=== PATIENT | female | born 1975 | race Caucasian/White ===

== ENCOUNTER 2024-11-15 22:18 | Emergency (ER) | payer SELFPAY ==
[2024-11-15 22:20] VITALS: BMI 47.0
[2024-11-15 23:06] VITALS: BP 163/97; PULSE 100; RESP 18; TEMP 36.7; O2SAT 97
--- NOTE | 2024-11-15 23:42 | PD.EDRECHK ---
ED Recheck Abnl Lab Rx-RME/HPI General Chief Complaint: General Adult/Misc Complain Stated Complaint: HIGH BS RAN OUT OF MEDS Time Seen by Provider: 11/15/24 23:19 Arrival date/time: 11/15/24 22:18 RME / HPI RME / HPI narrative: See [facility] for Dr. Bryan's HPI Documentation. Related Data Home Medications ?Medication ?Instructions ?Recorded ?Confirmed amlodipine 10 mg tablet 10 mg PO QDAY 07/26/18 10/31/20 furosemide 20 mg tablet 20 mg PO QDAY 07/26/18 10/31/20 lisinopril 10 mg tablet 10 mg PO DAILY 07/18/20 10/31/20 metformin 500 mg tablet 500 mg PO BID 07/18/20 10/31/20 ergocalciferol (vitamin D2) 1,250 1 mcg PO QWEEK 10/31/20 10/31/20 mcg (50,000 unit) capsule (Vitamin D2) Previous Rx's ?Medication ?Instructions ?Recorded metoprolol tartrate 50 mg tablet 50 mg PO BID #60 tabs 07/07/15 ibuprofen 600 mg tablet 600 mg PO Q8H PRN fever or pain 07/18/20 #30 tabs furosemide 40 mg tablet (Lasix) 40 mg PO BID #60 tabs 11/16/24 insulin glargine 100 unit/mL (3 30 unit (0.3 mL) subcut QPM #30 mL 11/16/24 mL) subcutaneous pen lisinopril 5 mg tablet 5 mg PO QDAY #30 tabs 11/16/24 metformin 1,000 mg tablet 1,000 mg PO BID #60 tabs 11/16/24 Allergies Allergy/AdvReac Type Severity Reaction Status Date / Time No Known Allergies Allergy Verified 11/16/24 00:30 Review of Systems Review of Systems Systems Reviewed: All systems reviewed, normal except as documented Past Medical History Past Medical History CARDIAC: Positive Cardiac Disorders and Hypertension ENDOCRINE: Positive Diabetes Mellitus Type 2 Surgical History SURGICAL: Positive Cardiac Surgery and Tonsillectomy ED Exam Narrative Physical exam: See [facility] for Dr. Bryan's Physical Exam Documentation. Course Quality Measures none Orders Category Date Time Status Glucose [Bedside Blood Glucose] NOW Care 11/16/24 01:56 Completed Glucose [Bedside Blood Glucose] NOW Care 11/16/24 04:07 Completed Saline [Insert IV] NOW Care 11/16/24 02:32 Completed ABG [Arterial Blood Gas] Stat Lab 11/15/24 23:55 Completed Beta Hydroxybutyrate Stat Lab 11/15/24 23:43 Completed Bilirubin,Direct Stat Lab 11/15/24 23:43 Completed CBC Stat Lab 11/15/24 23:43 Completed CMP [Comprehensive Metabolic Panel] Stat Lab 11/15/24 23:43 Completed CRP [C-Reactive Protein] Stat Lab 11/15/24 23:43 Completed ESR [Sed Rate (ESR)] Stat Lab 11/15/24 23:43 Completed Hemoglobin A1C [Glycohemoglobin w (eAG)] Stat Lab 11/15/24 23:43 Completed Lactate (Lactic Acid) Stat Lab 11/15/24 23:43 Completed Lactic Acid, 3 HR Stat Lab 11/16/24 03:25 Completed Magnesium Stat Lab 11/15/24 23:43 Completed Procalcitonin Stat Lab 11/15/24 23:43 Completed UA, C/S IF [Urinalysis, C/S if Indicated] Stat Lab 11/15/24 00:12 Completed Insulin Regular Med 11/16/24 02:31 Discontinued 10 unit IV X1 ONE Insulin Regular Med 11/15/24 23:22 Discontinued 10 unit SC X1 ONE Insulin Regular Med 11/16/24 03:13 Discontinued 5 unit IV X1 ONE Insulin Regular Med 11/16/24 04:15 Discontinued 5 unit IV X1 ONE KCL 10% Liq UDC 15 ML Med 11/16/24 00:50 Discontinued 40 meq PO X1 ONE Ondansetron Inj [Zofran Inj] Med 11/16/24 02:31 Discontinued 4 mg IVP X1 ONE Ringers Lactated 1000 ml [Lactated Ringers] 1,000 ml Med 11/16/24 02:32 Discontinued IV 1,000 mls/hr Vital Signs Vital signs: Vital Signs Temperature 98.1 F 11/15/24 23:06 Pulse Rate 100 11/15/24 23:06 Respiratory Rate 18 11/15/24 23:06 Blood Pressure 163/97 H 11/15/24 23:06 Pulse Oximetry (%) 97 11/15/24 23:06 Oxygen Delivery Method Room Air 11/15/24 23:06 Recheck / Abnormal Lab / Rx MDM Narrative MDM Narrative:: This section includes all my notes and documentations, including HPI, PE, and ED course. Sukhjinder Bryan MD HPI: 49 y/o female with Hx of Type II DM presents with elevated blood sugar s/p running out of insulin several days ago. No other complaints. ROS: All negative except as documented in HPI. Physical Exam: General: Alert and oriented. No acute distress when remaining still. Eyes: Conjunctivae and lids clear. ENT: No nasal congestion. Neck: Supple. Heart: RRR. Lungs: No respiratory distress. Good air movement. No rhonchi, wheezing, rales. Abdomen: Soft and nontender. Normal bowel sounds. No distension. No rebound or guarding. Back: No CVA tenderness. Skin: Warm and dry. Neuro: Alert and oriented X 3. I reviewed all diagnostic test results: Blood tests and urine tests remarkable for K 3.3 and glucose 480. At this point, diagnoses include: Hyperglycemia due due to running out of insulin for several days Treatment here included: Insulin 10 units SC Oral KCl 40 meq Zofran 4 mg Insulin 5 units IV X 2 IVF Significant improvement noted. Recommended outpatient care. Based on my best medical judgment, made decision no further evaluation or treatment indicated at this time. Patient understands and agrees to the discharge instructions customized and printed, see below. Discharge Instructions from Dr. Bryan printed for you: 1. You were treated for very high sugar levels from not taking insulin for several days. 2. Your insulin and other medications were prescribed. 3. When you take Lasix, eat a banana. Because Lasix can lower potassium to dangerous levels. 4. See a private doctor on 12/09 for recheck and further care. Ask to review all test results and official radiology reports, to make sure you receive all necessary follow-ups and monitoring. 5. Seek immediate medical care with worsening or with any concerns. Sukhjinder Bryan MD Patient data External records reviewed:: [facility] previous records (Reviewed prior ED records from 01/19/22. Patient was seen for Dog bite.) Clinical information provided by:: patient Social determinants that could affect healthcare access:: none Patient has the following chronic illnesses:: HTN, Type II DM How is presenting disease/condition affected by chronic disease/condition?: exacerbated by Evaluation data The following diagnostics were reviewed and interpreted by me:: lab results Lab and/or radiology exams considered but not ordered:: None Interpretation Summary: I reviewed all diagnostic test results: Blood tests and urine tests remarkable for K 3.3 and glucose 480. Medications / Prescriptions Medications or Prescriptions considered but not ordered:: None Medication administrations:: Medication Administration History Discontinued Medications Lactated Ringer's (Lactated Ringers) 1,000 mls @ 1,000 mls/hr IV .Q1H ONE Stop: 11/16/24 03:31 Last Infusion: 11/16/24 04:25 Dose: Infused Documented By: Admin: 11/16/24 03:25 Dose: 1,000 mls/hr Documented By: RIN Insulin Human Regular (Insulin Hum Regular 1 Unit/0.01 Ml (Per Unit)) 10 unit SC X1 ONE Stop: 11/15/24 23:23 Last Admin: 11/16/24 01:09 Dose: 10 unit Documented By: HERNESTO Co-signed By: RIN Insulin Human Regular (Insulin Hum Regular 1 Unit/0.01 Ml (Per Unit)) 10 unit IV X1 ONE Stop: 11/16/24 02:32 Last Admin: 11/16/24 03:16 Dose: Not Given Documented By: RIN Non-Admin Reason: Discontinued Insulin Human Regular (Insulin Hum Regular 1 Unit/0.01 Ml (Per Unit)) 5 unit IV X1 ONE Stop: 11/16/24 03:14 Last Admin: 11/16/24 03:22 Dose: 5 unit Documented By: RIN Co-signed By: CLAUDIA Insulin Human Regular (Insulin Hum Regular 1 Unit/0.01 Ml (Per Unit)) 5 unit IV X1 ONE Stop: 11/16/24 04:16 Last Admin: 11/16/24 04:47 Dose: 5 unit Documented By: RAMANDEEP Co-signed By: CLAUDIA Ondansetron HCl (Ondansetron Inj 2 Mg/Ml Inj 2 Ml) 4 mg IVP X1 ONE; Protocol Stop: 11/16/24 02:32 Last Admin: 11/16/24 03:40 Dose: Not Given Documented By: RAMANDEEP Non-Admin Reason: Patient Refused Potassium Chloride (Potassium Chloride 10% 20 Meq/15 Ml Udc) 40 meq PO X1 ONE Stop: 11/16/24 00:51 Last Admin: 11/16/24 01:12 Dose: 40 meq Documented By: HERNESTO Treatment here included: Insulin 10 units SC Oral KCl 40 meq Zofran 4 mg Insulin 5 units IV X 2 IVF Consultations Consultation(s) initiated? (list below): No Diagnosis Recheck Differential Diagnosis: encounter for medication refill and other (Hyperglycemia v Insufficient Diabetes Management) Most likely diagnosis given after review of the tests above:: Hyperglycemia due to running out of insulin for several days Admission Indicated Admission indicated?: not indicated Explain why admission is indicated or not indicated:: With significant improvement and no condition needing emergent intervention, there was no indication for admission. Admission Request Was there a request for admission?: No Disposition Plan Disposition Plan: Discharge Discharge Attestation Discharge Attestation: The patient and all family members were given an opportunity to ask questions and understood the discharge instructions. Discharge instructions specifically effects, indications for sooner follow up or return to the emergency department, and the expected course of current diagnosis. Patient condition: Stable Discharge Plan Plan Patient Disposition: HOME (Self Care) Prescriptions/Referrals Prescriptions/Med Rec: New lisinopril 5 mg tablet 5 mg PO QDAY Qty: 30 2RF furosemide [Lasix] 40 mg tablet 40 mg PO BID Qty: 60 2RF metformin 1,000 mg tablet 1,000 mg PO BID Qty: 60 2RF insulin glargine 100 unit/mL (3 mL) insulin pen 30 unit subcut QPM Qty: 30 2RF No Action metoprolol tartrate 50 MG tablet 50 mg PO BID Qty: 60 0RF amlodipine 10 mg Tablet 10 mg PO QDAY furosemide 20 mg Tablet 20 mg PO QDAY ergocalciferol (vitamin D2) [Vitamin D2] 1,250 mcg (50,000 unit) capsule 1 mcg PO QWEEK Patient Comments: take 1 capsule by mouth every week metformin 500 mg Tablet 500 mg PO BID lisinopril 10 mg tablet 10 mg PO DAILY ibuprofen 600 mg tablet 600 mg PO Q8H PRN (Reason: fever or pain) Qty: 30 0RF Referrals: No Primary/Family,Physician [Primary Care Provider] - In 1 week Problem List Clinical Impression: Hyperglycemia due to diabetes mellitus Patient/Caregiver Discharge Instructions Discharge Activity: activity as tolerated Education Materials: ED Diabetes with High Blood Sugar Additional Instructions: Discharge Instructions from Dr. Bryan printed for you: 1. You were treated for very high sugar levels from not taking insulin for several days. 2. Your insulin and other medications were prescribed. 3. When you take Lasix, eat a banana. Because Lasix can lower potassium to dangerous levels. 4. See a private doctor on 12/09 for recheck and further care. Ask to review all test results and official radiology reports, to make sure you receive all necessary follow-ups and monitoring. 5. Seek immediate medical care with worsening or with any concerns. Print Language: Persian Stand Alone Forms: Francia Award Info., Patient Portal Info Letter
[2024-11-15 23:57] LABS: Lactate (Lactic Acid) 2.9 mMol/L (0.4-2.0)
[2024-11-15 23:58] LABS: Basophils # (Auto) 0.0 Thou/mm3 (0.0-0.2); Basophils % (Auto) 0 % (0-2.5); Eosinophils # (Auto) 0.0 Thou/mm3 (0.0-0.5); Eosinophils % (Auto) 1 % (0-10); Hematocrit 37.8 % (36.0-46.0); Hemoglobin 13.1 g/dL (12.0-16.0); Immature Granulocytes Auto 0.01 Thou/mm3 (0.00-0.00); Lymphocytes # (Auto) 1.6 Thou/mm3 (1.0-4.8); Lymphocytes % (Auto) 25 % (10-50); Mean Corpuscular HGB Conc 34.7 g/dl (31.0-37.0); Mean Corpuscular Hemoglobin 28.5 pg (25.0-35.0); Mean Corpuscular Volume 82 fL (80-100); Monocytes # (Auto) 0.4 Thou/mm3 (0.0-0.8); Monocytes % (Auto) 6 % (0-12); Neutrophils # (Auto) 4.3 Thou/mm3 (1.8-7.7); Neutrophils % (Auto) 68 % (37-80); Nucleated Red Blood Cell # 0.00 Thou/mm3 (0.00-0.00); Nucleated Red Blood Cell % 0 /100 WBC (0); Platelet Count 185 Thou/mm3 (140-440); RDW Standard Deviation 39.7 fL (36.4-46.3); Red Blood Count 4.59 Miln/mm3 (4.00-5.20); White Blood Count 6.3 Thou/mm3 (3.6-11.0)
[2024-11-16 00:02] LABS: Base Excess 1 (-3-3); HCO3 25 mEq/L (20-26); Inspired Oxygen, FIO2 21 %; O2 Saturation 75 % (91-98); PCO2 38 mmHg (32.0-48.0); pH, Arterial 7.43 (7.35-7.45)
[2024-11-16 00:04] LABS: Beta Hydroxybutyrate 0.0 mmol/L (<0.6)
[2024-11-16 00:13] LABS: Allen Test Performed/OK; PO2 52 mmHg (83-108); Puncture Site Left Radial
[2024-11-16 00:20] LABS: Collection Type, Urine Clean Catch
[2024-11-16 00:22] LABS: Sed Rate (ESR) 11 mm/hr (0-20)
[2024-11-16 00:37] LABS: Glucose Estimated Average 272 mg/dL (80-131); Hemoglobin A1C 11.1 % Hgb (4.8-6.0)
[2024-11-16 00:38] LABS: Alanine Aminotransferase 19 U/L (10-49); Albumin, Serum 4.4 gm/dL (3.5-5.0); Albumin/Globulin Ratio 1.8 (1.2-2.2); Alkaline Phosphatase 112 U/L (46-116); Anion Gap 12 (7-16); Aspartate Amino Transferase 18 U/L (0-34); BUN/Creatinine Ratio 8 Ratio (12-20); Bilirubin,Direct 0.3 mg/dL (0.0-0.3); Bilirubin,Total 1.1 mg/dL (0.3-1.2); Blood Urea Nitrogen 7 mg/dL (9-23); C-Reactive Protein 0.9 mg/dL (0.0-0.9); Calcium 10.5 mg/dL (8.3-10.6); Calcium (Corrected) 10.5 mg/dL (8.5-10.1); Carbon Dioxide 22.0 mMol/L (20.0-31.0); Chloride 101 mMol/L (98-107); Creatinine (Component) 0.9 mg/dL (0.6-1.3); Estimated Creatinine Clearance 110.3 mL/min (>60); Globulin 2.4 gm/dL (2.3-3.5); Magnesium 1.7 mg/dL (1.6-2.6); Osmolality,Calculated 289 (275-295); Potassium 3.3 mMol/L (3.4-5.1); Procalcitonin 0.14 ng/ml (0.0-0.49); Sodium 135 mMol/L (136-145); Total Protein 6.8 gm/dL (5.7-8.2); eGFR > 60 See Note
[2024-11-16 00:39] LABS: Glucose 480 mg/dL (74-106)
[2024-11-16 00:59] LABS: Bacteria,Urine Rare; Bilirubin,Urine Negative (Negative); Blood,Urine Negative (Negative); Clarity,Urine Clear (Clear/Hazy); Color,Urine Lt-Yellow (Lt Yel-Yel); Culture Indicated,Urine Not Indicated; Glucose, Urine 4+ (Negative); Ketones,Urine Negative (Negative); Leukocyte Esterase,Urine Negative (Negative); Nitrite,Urine Negative (Negative); PH,Urine 5.5 (5.0-7.0); Protein,Urine Negative (Neg - Trace); RBC,Urine 2 /hpf (0-3); Specific Gravity,Urine 1.034 (1.001-1.035); Squamous Epithelial Cell,Urine 1 /hpf (0-5); Urobilinogen,Urine Negative mg/dL (0.0-1.0); WBC,Urine 3 /hpf (0-5)
[2024-11-16] MEDS: INSULIN HUM REGULAR 1 UNIT/0.01 ML (PER UNIT) 10 UNIT SC (01:09)
[2024-11-16] MEDS: POTASSIUM CHLORIDE 10% 20 MEQ/15 ML UDC 40 MEQ PO (01:12)
[2024-11-16 02:55] LABS: Reflex Lactate? Y
[2024-11-16 03:08] VITALS: BP 167/95; PULSE 80; RESP 16; TEMP 36.4; O2SAT 97
[2024-11-16] MEDS: INSULIN HUM REGULAR 1 UNIT/0.01 ML (PER UNIT) 5 UNIT IV ×2 (03:22→04:47)
[2024-11-16] MEDS: RINGERS LACTATED 1000 ML 1,000 ML IV (03:25)
[2024-11-16 03:42] LABS: Lactic Acid, 3 HR 2.3 mMol/L (0.4-2.0)
[2024-11-16 05:20] VITALS: BP 165/85; PULSE 85; RESP 14; TEMP 37; O2SAT 99
== END 2024-11-16 05:21 | disposition home or self-care (01) ==
PROVIDERS: Emergency Provider Emergency Medicine
DX: E11.65 Type 2 diabetes mellitus with hyperglycemia (principal); Z79.84 Long term (current) use of oral hypoglycemic drugs
CPT/HCPCS: 36415; 36600; 80053; 81001; 82010; 82248; 82803; 83036; 83605; 83735; 84145; 85025; 85652; 86140; 96360; 99284; J1815; J7120; A9270

== ENCOUNTER 2025-02-22 17:58 | Emergency (ER) | payer SELFPAY ==
--- NOTE | 2025-02-22 18:04 | EKG_ITS ---
[facility] Test Date: 2025-02-22 Pat Name: SARAH HERNANDEZ Department: Room: - Gender: Female Bin Piler: : [id number] Requested By: Shan Holley Order Number: [id number] Reading MD: Shan Holley Measurements Intervals [place] Rate: 105 P: 45 OK: 160 QRS: 48 QRSD: 102 T: 61 QT: 340 QTc: 449 Interpretive Statements SINUS TACHYCARDIA POSSIBLE LEFT ATRIAL ENLARGEMENT [-0.1mV P-WAVE IN V1/V2] POSSIBLE ANTERIOR MYOCARDIAL INFARCTION , OF INDETERMINATE AGE [30 ms Q WAVE IN V3/V4, OR R < 0.2 mV IN V4] Compared to ECG 07/26/2018 12:02:32 No significant changes /store/S0/[id number]/[id number].pdf
[2025-02-22 18:14] VITALS: BP 203/134; PULSE 110; RESP 19; TEMP 36.8; O2SAT 100; BMI 46.0
--- NOTE | 2025-02-22 18:59 | PD.EDCHEST ---
ED Chest Pain RME/HPI General Chief Complaint: Chest Pain Stated Complaint: CHEST PAIN RADIATING UP NECK, SOB, HR 113 Time Seen by Provider: 02/22/25 19:05 Arrival date/time: 02/22/25 17:58 RME / HPI RME / HPI narrative: See MDM for Dr. Bryan's HPI documentation. Related Data Home Medications ?Medication ?Instructions ?Recorded ?Confirmed amlodipine 10 mg tablet 10 mg PO QDAY 07/26/18 10/31/20 furosemide 20 mg tablet 20 mg PO QDAY 07/26/18 10/31/20 lisinopril 10 mg tablet 10 mg PO DAILY 07/18/20 10/31/20 metformin 500 mg tablet 500 mg PO BID 07/18/20 10/31/20 ergocalciferol (vitamin D2) 1,250 1 mcg PO QWEEK 10/31/20 10/31/20 mcg (50,000 unit) capsule (Vitamin D2) Previous Rx's ?Medication ?Instructions ?Recorded metoprolol tartrate 50 mg tablet 50 mg PO BID #60 tabs 07/07/15 ibuprofen 600 mg tablet 600 mg PO Q8H PRN fever or pain 07/18/20 #30 tabs furosemide 40 mg tablet (Lasix) 40 mg PO BID #60 tabs 11/16/24 insulin glargine 100 unit/mL (3 30 unit (0.3 mL) subcut QPM #30 mL 11/16/24 mL) subcutaneous pen lisinopril 5 mg tablet 5 mg PO QDAY #30 tabs 11/16/24 metformin 1,000 mg tablet 1,000 mg PO BID #60 tabs 11/16/24 furosemide 40 mg tablet (Lasix) 40 mg PO BID #180 tabs 02/22/25 lisinopril 10 mg tablet 10 mg PO BID #180 tabs 02/22/25 metformin 1,000 mg tablet 1,000 mg PO BID #180 tabs 02/22/25 metoprolol succinate 50 mg 50 mg PO BID #180 tabs 02/22/25 tablet,extended release 24 hr Allergies Allergy/AdvReac Type Severity Reaction Status Date / Time No Known Allergies Allergy Verified 02/22/25 18:02 Review of Systems Review of Systems Systems Reviewed: All systems reviewed, normal except as documented Past Medical History Past Medical History CARDIAC: Positive Cardiac Disorders and Hypertension; Negative Congestive Heart Failure RESPIRATORY: Negative Chronic Obstructive Pulmonary Disease (COPD) or Asthma GENITOURINARY: Negative Renal Disease ENDOCRINE: Positive Diabetes Mellitus Type 2; Negative Diabetes Mellitus Type 1 HEMATOLOGIC: Negative Sickle Cell Disease Surgical History SURGICAL: Positive Cardiac Surgery and Tonsillectomy Social History SMOKING STATUS: Never smoker SUBSTANCE USE: does not use ED Exam Narrative Physical exam: See MDM for Dr. Bryan's physical exam documentation. Course Course Course Narrative: CXR is ordered for determining the etiology of chest pain. Quality Measures none Orders Category Date Time Status Bedside COVID-19 Antigen Test NOW Care 02/22/25 19:06 Completed Bedside Influenza A&B Antigen Test NOW Care 02/22/25 19:06 Completed EKG (ED ONLY) *Do not use* NOW Care 02/22/25 18:[address] head/brain wo con Stat Exams 02/22/25 19:07 Completed EKG (ED Only) Stat Exams 02/22/25 18:04 Draft XR chest 1V portable Stat Exams 02/22/25 19:06 Completed BNP [B-Type Natriuretic Peptide] Stat Lab 02/22/25 19:50 Completed Beta Hydroxybutyrate Stat Lab 02/22/25 19:50 Completed Bilirubin,Direct Stat Lab 02/22/25 19:50 Completed CBC Stat Lab 02/22/25 19:50 Completed CMP [Comprehensive Metabolic Panel] Stat Lab 02/22/25 19:50 Completed D-Dimer Stat Lab 02/22/25 19:50 Completed HCG,Qualitative Serum Stat Lab 02/22/25 19:50 Completed Hemoglobin A1C [Glycohemoglobin w (eAG)] Stat Lab 02/22/25 19:50 Completed Lipase Stat Lab 02/22/25 19:50 Completed Magnesium Stat Lab 02/22/25 19:50 Completed TSH [Thyroid Stimulating Hormone] Stat Lab 02/22/25 19:50 Completed Troponin I Stat Lab 02/22/25 19:50 Completed UA, C/S IF [Urinalysis, C/S if Indicated] Stat Lab 02/22/25 20:45 Completed VBG [Venous Blood Gas] Stat Lab 02/22/25 19:50 Completed Insulin Regular Med 02/22/25 20:44 Discontinued 10 unit SC X1 ONE Metoprolol Tartrate [Lopressor] Med 02/22/25 18:40 Discontinued 50 mg PO X1 ONE cloNIDine HCL [Catapres] Med 02/22/25 18:40 Discontinued 0.3 mg PO X1 ONE Vital Signs Vital signs: Vital Signs Temperature 98.3 F 02/22/25 18:14 Pulse Rate 110 H 02/22/25 18:14 Respiratory Rate 19 02/22/25 18:14 Blood Pressure 203/134 H 02/22/25 18:14 Pulse Oximetry (%) 100 02/22/25 18:14 Oxygen Delivery Method Room Air 02/22/25 18:14 Chest Pain MDM Narrative MDM Narrative:: This section includes all my notes and documentations, including HPI, PE, and ED course. Sukhjinder Bryan MD HPI: 49-year-old female with history of HTN here with high BP and left-sided chest pain for 3 days. Hasn't been taking her metoprolol because she ran out. Reports headache. No speech or vision impairment. No loss of power in the arms or legs. No other complaints. ROS: All negative except as documented in HPI. Physical Exam: General:? Alert and oriented.? No acute distress.??High BP noted. Eyes:? Conjunctivae and lids clear.? EOMI.? PERRL. ENT:? No nasal congestion. Neck:? Supple.? No carotid bruit.? No JVD.?? Heart:? RRR.? Lungs:? No respiratory distress.? Good air movement.? No rhonchi, wheezing, rales.?? Chest:? No tenderness. Abdomen:? Soft and nontender.? Normal bowel sounds.? No distension.? No rebound or guarding.?? Back:? No CVA tenderness.?? Legs:? No clubbing, cyanosis, edema.? Skin:? Warm and dry.?? Neuro:? Alert and oriented X 3.? Cranial Nerves II-XII grossly intact.? No peripheral motor deficits. Musculoskeletal:? All major joints and bones are not tender with no limited ROM. I reviewed all diagnostic test results. My interpretation of the EKG is sinus tachycardia. My interpretation of the chest x-ray is NAD. My review of the CT head report is NAD. Blood tests remarkable for Glucose 359. At this point, diagnoses include: Hypertensive urgency Hyperglycemia Treatment here included: Clonidine 0.3 mg PO Metoprolol 50 mg PO Insulin 10 units SC Significant improvement noted. Recommended more outpatient care. Based on my best medical judgment, made decision no further evaluation or treatment indicated at this time. Patient understands and agrees to the discharge instructions customized and printed, see below. Discharge instructions from Dr. Bryan: 1. After extensive evaluation, there is no life-threatening condition. Such as stroke or heart attack or pulmonary embolism (blood clots in your lungs) or pneumothorax (collapsed lung). 2. Your symptoms were due to hypertensive urgency/emergency. 3. Take all your medications, including metoprolol and furosemide and metformin and lisinopril. Make sure you don't run out of your medications. 4. See a private doctor on 02/23/2025 for recheck. To make sure there is no serious underlying heart condition, ask to help you get more tests for your heart that cannot be done here in the ER. Such as Holter Monitor (cardiac monitoring at home from a day to even a month), heart stress test (on treadmill or with medication), echocardiogram (imaging of your heart structures), heart catherization (checking for blockages in your heart arteries), and a referral to see a Pulverizer Operator. Ask for help keeping you healthy preventing future strokes and heart attacks, with good management of your BP and diabetes and with regular physical exam and health maintenance. 5. Seek immediate medical care with worsening or with any concerns. Sukhjinder Bryan MD Patient data External records reviewed:: [facility] previous records (Per chart review, patient was seen here on 11/15/24 for hyperglycemia.) Clinical information provided by:: patient Social determinants that could affect healthcare access:: none Patient has the following chronic illnesses:: DMII, HTN How is presenting disease/condition affected by chronic disease/condition?: exacerbated by Evaluation data The following diagnostics were reviewed and interpreted by me:: lab results, radiology exam(s) and EKG tracing(s) (My interpretation of the EKG is: Sinus tachycardia (105 bpm) with nonspecific ST-T changes. Sukhjinder Bryan MD) Lab and/or radiology exams considered but not ordered:: none Interpretation Summary: I reviewed all diagnostic test results. My interpretation of the EKG is sinus tachycardia. My interpretation of the chest x-ray is NAD. My review of the CT head report is NAD. Blood tests remarkable for Glucose 359. Medications / Prescriptions Medications or Prescriptions considered but not ordered:: none Medication administrations:: Medication Administration History Discontinued Medications Clonidine (Clonidine Hcl 0.1 Mg Tablet) 0.3 mg PO X1 ONE Stop: 02/22/25 18:41 Last Admin: 02/22/25 19:24 Dose: 0.3 mg Documented By: Insulin Human Regular (Insulin Hum Regular 1 Unit/0.01 Ml (Per Unit)) 10 unit SC X1 ONE Stop: 02/22/25 20:45 Last Admin: 02/22/25 21:39 Dose: 10 unit Documented By: WO Co-signed By: Metoprolol Tartrate (Metoprolol Tartrate 25 Mg Tablet) 50 mg PO X1 ONE Stop: 02/22/25 18:41 Last Admin: 02/22/25 19:21 Dose: 50 mg Documented By: Clonidine 0.3 mg PO Metoprolol 50 mg PO Insulin 10 units SC Consultations Consultation(s) initiated? (list below): No Diagnosis Chest Pain Differential Diagnosis: pneumothorax, stable angina, unstable angina pectoris, st elevation myocardial infarction and costochondritis Most likely diagnosis given after review of the tests above:: Hypertensive urgency Admission Indicated Admission indicated?: not indicated Explain why admission is indicated or not indicated:: With significant improvement and no condition needing emergent intervention, there was no indication for admission. Admission Request Was there a request for admission?: No Disposition Plan Disposition Plan: Discharge Discharge Attestation Discharge Attestation: The patient and all family members were given an opportunity to ask questions and understood the discharge instructions. Discharge instructions specifically effects, indications for sooner follow up or return to the emergency department, and the expected course of current diagnosis. Patient condition: Stable Discharge Plan Plan Patient Disposition: HOME (Self Care) Prescriptions/Referrals Prescriptions/Med Rec: New metoprolol succinate 50 mg tablet extended release 24 hr 50 mg PO BID Qty: 180 1RF furosemide [Lasix] 40 mg tablet 40 mg PO BID Qty: 180 1RF lisinopril 10 mg tablet 10 mg PO BID Qty: 180 1RF metformin 1,000 mg tablet 1,000 mg PO BID Qty: 180 1RF No Action metoprolol tartrate 50 MG tablet 50 mg PO BID Qty: 60 0RF amlodipine 10 mg Tablet 10 mg PO QDAY furosemide 20 mg Tablet 20 mg PO QDAY ergocalciferol (vitamin D2) [Vitamin D2] 1,250 mcg (50,000 unit) capsule 1 mcg PO QWEEK Patient Comments: take 1 capsule by mouth every week metformin 500 mg Tablet 500 mg PO BID lisinopril 10 mg tablet 10 mg PO DAILY ibuprofen 600 mg tablet 600 mg PO Q8H PRN (Reason: fever or pain) Qty: 30 0RF lisinopril 5 mg tablet 5 mg PO QDAY Qty: 30 2RF furosemide [Lasix] 40 mg tablet 40 mg PO BID Qty: 60 2RF metformin 1,000 mg tablet 1,000 mg PO BID Qty: 60 2RF insulin glargine 100 unit/mL (3 mL) insulin pen 30 unit subcut QPM Qty: 30 2RF Referrals: No Primary/Family,Physician [Primary Care Provider] - In 1 week Problem List Clinical Impression: Hypertensive urgency Patient/Caregiver Discharge Instructions Discharge Activity: activity as tolerated Education Materials: ED Hypertension, Established Additional Instructions: Discharge instructions from Dr. Bryan: 1. After extensive evaluation, there is no life-threatening condition. Such as stroke or heart attack or pulmonary embolism (blood clots in your lungs) or pneumothorax (collapsed lung). 2. Your symptoms were due to hypertensive urgency/emergency. 3. Take all your medications, including metoprolol and furosemide and metformin and lisinopril. Make sure you don't run out of your medications. 4. See a private doctor on 02/23/2025 for recheck. To make sure there is no serious underlying heart condition, ask to help you get more tests for your heart that cannot be done here in the ER. Such as Holter Monitor (cardiac monitoring at home from a day to even a month), heart stress test (on treadmill or with medication), echocardiogram (imaging of your heart structures), heart catherization (checking for blockages in your heart arteries), and a referral to see a Pulverizer Operator. Ask for help keeping you healthy preventing future strokes and heart attacks, with good management of your BP and diabetes and with regular physical exam and health maintenance. 5. Seek immediate medical care with worsening or with any concerns. Print Language: Malay Stand Alone Forms: Francia Award Info., Patient Portal Info Letter
--- NOTE | 2025-02-22 19:06 | XR_ITS ---
EXAMINATION: PA chest single view TECHNIQUE: Upright PA chest single view Date and time: February 22, 2025, 1936 hours, comparison August 05, 2016 INDICATIONS: Chest pain beginning 4 days ago. FINDINGS: Normal heart size Mediastinal surgical clips and stable mildly prominent left mediastinum No pneumonia or pulmonary edema IMPRESSION: No interval pneumonia or pulmonary edema
--- NOTE | 2025-02-22 19:07 | XR_ITS ---
Examination: CT brain head without contrast. 2-D sagittal coronal reconstructions Date and time of exam: February 22, 2025, 1933 hours INDICATIONS: High blood pressure with headache beginning 3 days ago CTDI: vol (mGy): 55.1 DLP: (mGycm): 101 Technique: Multiple CT axial sections of the brain have been obtained, 5 mm slice thickness. Contrast has not been administered. 2-D sagittal, coronal reconstructions have been obtained Low dose protocols were performed. One or more of the following dose reduction techniques were used; automated exposure control, adjustment of the mA and/or KV according to patient size, use of iterative reconstruction technique. Findings: No significant ventricular enlargement. Prominent left maxillary sinusitis Intra-axial or extra-axial hemorrhage density is not seen. No mass effect or midline shift Basal cisterns are not remarkable. Fourth ventricle is midline. Cranial vault intact. Impression: Negative for acute hemorrhage, mass effect or midline shift
[2025-02-22 19:21] VITALS: BP 148/105; PULSE 108
[2025-02-22] MEDS: METOPROLOL TARTRATE 25 MG TABLET 50 MG PO (19:21)
[2025-02-22 19:24] VITALS: BP 148/105; PULSE 108
[2025-02-22 20:09] LABS: Base Excess, Venous 4 (-3-3); O2 Saturation, Venous 80 % (96-97); PCO2, Venous 48 mmHg (36-56); PO2, Venous 46 mmHg (15-58); pH, Venous 7.40 (7.33-7.66)
[2025-02-22 20:13] LABS: Basophils # (Auto) 0.0 Thou/mm3 (0.0-0.2); Basophils % (Auto) 0 % (0-2.5); Eosinophils # (Auto) 0.0 Thou/mm3 (0.0-0.5); Eosinophils % (Auto) 0 % (0-10); Hematocrit 41.8 % (36.0-46.0); Hemoglobin 14.8 g/dL (12.0-16.0); Immature Granulocytes Auto 0.03 Thou/mm3 (0.00-0.00); Lymphocytes # (Auto) 2.2 Thou/mm3 (1.0-4.8); Lymphocytes % (Auto) 26 % (10-50); Mean Corpuscular HGB Conc 35.4 g/dl (31.0-37.0); Mean Corpuscular Hemoglobin 28.2 pg (25.0-35.0); Mean Corpuscular Volume 80 fL (80-100); Monocytes # (Auto) 0.5 Thou/mm3 (0.0-0.8); Monocytes % (Auto) 6 % (0-12); Neutrophils # (Auto) 5.7 Thou/mm3 (1.8-7.7); Neutrophils % (Auto) 68 % (37-80); Nucleated Red Blood Cell # 0.00 Thou/mm3 (0.00-0.00); Nucleated Red Blood Cell % 0 /100 WBC (0); Platelet Count 214 Thou/mm3 (140-440); RDW Standard Deviation 38.7 fL (36.4-46.3); Red Blood Count 5.25 Miln/mm3 (4.00-5.20); White Blood Count 8.4 Thou/mm3 (3.6-11.0)
[2025-02-22 20:22] LABS: Beta Hydroxybutyrate 0.2 mmol/L (<0.6)
[2025-02-22 20:30] LABS: D-Dimer < 250 ng/mL (<600)
[2025-02-22 20:33] LABS: HCG,Qualitative Serum Negative
[2025-02-22 20:38] LABS: Glucose Estimated Average 278 mg/dL (80-131); Hemoglobin A1C 11.3 % Hgb (4.8-6.0)
[2025-02-22 20:39] LABS: B-Type Natriuretic Peptide < 20 pg/mL (0-100)
[2025-02-22 20:41] LABS: Alanine Aminotransferase 26 U/L (10-49); Albumin, Serum 5.0 gm/dL (3.5-5.0); Albumin/Globulin Ratio 1.7 (1.2-2.2); Alkaline Phosphatase 118 U/L (46-116); Anion Gap 11 (7-16); Aspartate Amino Transferase 21 U/L (0-34); BUN/Creatinine Ratio 18 Ratio (12-20); Bilirubin,Direct 0.3 mg/dL (0.0-0.3); Bilirubin,Total 0.9 mg/dL (0.3-1.2); Blood Urea Nitrogen 14 mg/dL (9-23); Calcium 10.3 mg/dL (8.3-10.6); Calcium (Corrected) 10.3 mg/dL (8.5-10.1); Carbon Dioxide 27.5 mMol/L (20.0-31.0); Chloride 98 mMol/L (98-107); Creatinine (Component) 0.8 mg/dL (0.6-1.3); Estimated Creatinine Clearance 122.6 mL/min (>60); Globulin 2.9 gm/dL (2.3-3.5); Glucose 359 mg/dL (74-106); Lipase 107 U/L (12-53); Magnesium 1.9 mg/dL (1.6-2.6); Osmolality,Calculated 286 (275-295); Potassium 4.0 mMol/L (3.4-5.1); Sodium 136 mMol/L (136-145); Thyroid Stimulating Hormone 3.17 uIU/mL (0.55-4.78); Total Protein 7.9 gm/dL (5.7-8.2); Troponin I < 0.020 ng/mL (0.0-0.045); eGFR > 60 See Note
[2025-02-22 21:04] LABS: Collection Type, Urine Clean Catch
[2025-02-22 21:16] LABS: Bacteria,Urine Rare; Bilirubin,Urine Negative (Negative); Blood,Urine Trace (Negative); Clarity,Urine Clear (Clear/Hazy); Color,Urine Lt-Yellow (Lt Yel-Yel); Culture Indicated,Urine Not Indicated; Glucose, Urine 4+ (Negative); Ketones,Urine Negative (Negative); Leukocyte Esterase,Urine Negative (Negative); Nitrite,Urine Negative (Negative); PH,Urine 6.0 (5.0-7.0); Protein,Urine Negative (Neg - Trace); RBC,Urine 4 /hpf (0-3); Specific Gravity,Urine 1.027 (1.001-1.035); Squamous Epithelial Cell,Urine 9 /hpf (0-5); Urobilinogen,Urine Negative mg/dL (0.0-1.0); WBC,Urine 5 /hpf (0-5)
[2025-02-22] MEDS: INSULIN HUM REGULAR 1 UNIT/0.01 ML (PER UNIT) 10 UNIT SC (21:39)
== END 2025-02-22 21:46 | disposition home or self-care (01) ==
PROVIDERS: Emergency Provider Emergency Medicine
DX: I16.0 Hypertensive urgency (principal); I10 Essential (primary) hypertension; R51.9 Headache, unspecified; E11.65 Type 2 diabetes mellitus with hyperglycemia; Z79.84 Long term (current) use of oral hypoglycemic drugs; Z79.4 Long term (current) use of insulin
CPT/HCPCS: 36415; 70450; 71045; 80053; 81001; 82010; 82248; 82803; 83036; 83690; 83735; 83880; 84443; 84484; 84703; 85025; 85379; 93005; 99283; J1815; A9270